=== PATIENT | female | born 1985 | race Caucasian/White ===

== ENCOUNTER 2016-05-19 14:13 | Emergency (ER) | payer OTHER ==
[2016-05-19 15:16] VITALS: BMI 16.0
[2016-05-19] MEDS ORDERED: NS 1,000 ML IV ONE (18:57)
[2016-05-19] MEDS ORDERED: SODIUM CHLORIDE 0.9% 10 ML FLUSH FLUSH PRN (18:57)
[2016-05-19] MEDS ORDERED: MORPHINE 4 MG/ML INJECTION IV ONE (18:57)
[2016-05-19] MEDS ORDERED: ONDANSETRON HCL 4 MG/2 ML VIAL IV ONE (18:57)
--- NOTE | 2016-05-19 19:00 | EDPRACDOC ---
- General Information Chief Complaint: Abdominal Pain Stated Complaint: LOWER RT ABD PAIN Time Seen by Provider: 05/19/16 18:51 Information Source: Patient Mode Of Arrival: Car Home Medications: Home Medications Hydrocodone Bit/Acetaminophen [Lortab 5/325] 1 tab PO Q4-6H PRN #15 tab Ondansetron HCl [Zofran] 4 mg PO Q8H PRN #15 tab 05/19/16 Allergies/Adverse Reactions: Allergies Allergy/AdvReac Type Severity Reaction Status Date / Time No Known Allergies Allergy Verified 05/19/16 15:16 - History of Present Illness Onset: today HPI: Pt c/o increased R adnexa pain x 1 day with vaginal spotting. Pt states has had pain for a while but not a severe as it is today. Pt states has appointment with [facility]ne on Jun 06 for IUD removal. Denies fever, n/v, changes in bowel or bladder, vaginal discharge. Pain Location: Reports: RLQ Pain Context: Reports: Spontaneous Pain Severity: Severe Pain Quality: Reports: Sharp, Stabbing Pain Radiation: Reports: No Radiation Last Menstrual Period: THIS AM : No Control Method: Reports: IUD Modifying Factors: improves with: Nothing Female Associated Signs & Symptoms: Reports: Vaginal Bleeding Oral Intake: Normal Urinary Output: Normal ED Past Medical History - History Reviewed Yes Nurses notes reviewed and agree except as marked - Patient Medical History Surgical History: Reports: Tonsillectomy/Adnoidectomy - Social Medical History Smoking Status: Never smoker ETOH: Social Substance Abuse: None EDM Review of Systems - Review of Systems Constitutional: No Symptoms Reported. negative: Fever, Chills, Weakness, Fatigue, Loss of Appetite Respiratory: No Symptoms Reported. negative: Cough, Brassy Cough, Barky Cough, Shortness of Breath, Wheezing, Hemoptysis Cardiovascular: No Symptoms Reported. negative: Chest Pain, Palpitations, Syncope, Edema, Orthopnea, PND, Skin Mottling, Cyanosis Gastrointestinal: Pain Genitourinary: Bleeding Neurological: No Symptoms Reported. negative: Headache, Dizziness, Seizure, Numbness, Weakness, Speech Difficulty, Gait Difficulty Musculoskeletal: No Symptoms Reported. negative: Neck, Chestwall, Ribs, Back, Shoulder, Arm, Elbow, Forearm, Wrist, Hand, Pelvis, Hip, Femur, Knee, Leg, Ankle , Foot Integumentary: No Symptoms Reported. negative: Itching, Rash, Bruising, Wound Allergic/Immunologic: No Symptoms Reported. negative: Hives, Itching Hematologic: No Symptoms Reported. negative: Lymphadenopathy, Easy Bruising, Easy Bleeding Psychiatric: No Symptoms Reported. negative: Anxiety, Depression, Hallucinations, Insomnia, Suicidal - Physical Exam Constitutional: Alert Oriented to: Time, Person, Place Last recorded Vital Signs: Last Vital Signs Temp 98.6 F 05/19/16 15:15 Pulse 81 05/19/16 18:47 Resp 20 05/19/16 15:15 BP 123/82 05/19/16 18:47 Pulse Ox 100 05/19/16 18:47 Oxygen Pulse Oxygen Saturation 100 O2 Device Oxygen Flow Rate Fraction of Inspired Oxygen ( FIO2) - HEENT Head: Normal ( normocephalic) Eye Exam: Normal (PERRL, EOMI, Sclera white) Neck: Normal (FROM, trachea at midline) - Respiratory/Cardiovascular Respiratory: Normal - CTA (BBS clear to auscultation without adventitious sounds ) Cardiovascular: Normal (RRR without murmur, gallop or rub) - GI Auscultation: Normal (NABS) Palpation: Normal (Soft,No rebound or guarding, non distended) Tenderness: Other (R inguinal pain) - Bladder: Normal External: Normal Vagina: Normal Cervix: Blood Uterus: Normal size Adnexa: Right: Tender - Musculoskeletal Back: Normal (Non-Tender) Extremities: Normal (Normal tone, Pulses 2+ No cyanosis or edema, FROM) - Integumentary Skin: Normal, Warm, Dry Lymphatics: Normal (no adenopathy) - Neurologic Memory Impaired: Normal Motor Function: Normal (Normal tone, Pulses 2+ No cyanosis or edema, FROM) Mood Description: Normal Perception: Normal - Differential Diagnosis Gastroenteritis, UTI, Other (vaginitis, cervicitis, torsion of ovary) - Results 05/19/16 19:05 05/19/16 19:05 WBC 9.9 xk/uL (3.8-10.8) 05/19/16 19:05 RBC 4.44 xM/uL (4.20-5.40) 05/19/16 19:05 Hgb 13.8 g/dL (12.0-16.0) 05/19/16 19:05 Hct 41.2 % (36-47) 05/19/16 19:05 MCV 93 fL (81-99) 05/19/16 19:05 MCH 31.0 pg (27-32) 05/19/16 19:05 MCHC 33.5 g/dl (33-36) 05/19/16 19:05 RDW 13.0 % (11.5-14.5) 05/19/16 19:05 Plt Count 329 xk/uL (130-400) 05/19/16 19:05 MPV 7.6 fL (7.4-10.4) 05/19/16 19:05 Neut % (Auto) 55.8 % (45-76) 05/19/16 19:05 Lymph % (Auto) 35.1 % (17-44) 05/19/16 19:05 [place] % (Auto) 7.6 % (3-10) 05/19/16 19:05 Eos % (Auto) 0.8 % (0-5) 05/19/16 19:05 Baso % (Auto) 0.7 % (0-2) 05/19/16 19:05 Absolute Neuts (auto) 5.45 xk/uL (1.7-8.2) 05/19/16 19:05 Absolute Lymphs (auto) 3.47 xk/uL (0.65-4.75) 05/19/16 19:05 Sodium 141 mEq/L (137-146) 05/19/16 19:05 Potassium 3.4 mEq/L (3.5-5.1) L 05/19/16 19:05 Chloride 102 mEq/L (98-107) 05/19/16 19:05 Carbon Dioxide 30 mMOL/L (22-33) 05/19/16 19:05 Anion Gap 12 mEq/L (8-16) 05/19/16 19:05 BUN 11 MG/DL (7-17) 05/19/16 19:05 Creatinine 0.80 MG/DL (0.52-1.04) 05/19/16 19:05 Estimated GFR (MDRD) > 60 mL/min (>=60) 05/19/16 19:05 Glucose 100 MG/DL (70-99) H 05/19/16 19:05 Calculated Osmolality 270 MOs/Kg (270-290) 05/19/16 19:05 Calcium 9.1 MG/DL (8.4-10.2) 05/19/16 19:05 Total Bilirubin 0.6 MG/DL (0.2-1.3) 05/19/16 19:05 AST 30 IU/L (14-36) 05/19/16 19:05 ALT 24 IU/L (9-52) 05/19/16 19:05 Alkaline Phosphatase 69 IU/L (38-126) 05/19/16 19:05 Total Protein 8.0 G/DL (6.3-8.2) 05/19/16 19:05 Albumin 4.6 G/DL (3.5-5.0) 05/19/16 19:05 Urine Color Svetlana 05/19/16 18:30 Urine Clarity Sl cldy 05/19/16 18:30 Urine pH 6.0 (5.0-8.0) 05/19/16 18:30 Ur Specific [place] 1.025 (1.003-1.035) 05/19/16 18:30 Urine Protein 1+ (NEG/TRACE) H 05/19/16 18:30 Urine Glucose (UA) Neg (NEGATIVE) 05/19/16 18:30 Urine Ketones 1+ (NEGATIVE) H 05/19/16 18:30 Urine Occult Blood 3+ (NEG/TRACE) H 05/19/16 18:30 Urine Nitrite Neg (NEGATIVE) 05/19/16 18:30 Urine Bilirubin Neg (NEGATIVE) 05/19/16 18:30 Urine Urobilinogen <2.0 MG/DL (0-1) 05/19/16 18:30 Ur Leukocyte Esterase Trace (NEGATIVE) H 05/19/16 18:30 Urine RBC 2-5 (0-5) 05/19/16 18:30 Urine WBC 2-5 (0-5) 05/19/16 18:30 Ur Epithelial Cells 4+ 05/19/16 18:30 Urine Bacteria Few (NEG/FEW) 05/19/16 18:30 Urine Mucus Mod (NEG/OCC) H 05/19/16 18:30 Urine Test Neg (NEGATIVE) 05/19/16 18:30 Microbiology 05/19/16 20:19 RIDGE Preparation - Final Vaginal 05/19/16 20:19 Trichomonas Wet [place] - Final Vaginal Lab Results 0105/19/16 05/19/16 19:05 19:05 18:30 WBC 9.9 RBC 4.44 Hgb 13.8 Hct 41.2 MCV 93 MCH 31.0 MCHC 33.5 RDW 13.0 Plt Count 329 MPV 7.6 Neut % (Auto) 55.8 Lymph % (Auto) 35.1 [place] % (Auto) 7.6 Eos % (Auto) 0.8 Baso % (Auto) 0.7 Absolute Neuts (auto) 5.45 Absolute Lymphs (auto) 3.47 Sodium 141 Potassium 3.4 L Chloride 102 Carbon Dioxide 30 Anion Gap 12 BUN 11 Creatinine 0.80 Estimated GFR (MDRD) > 60 Glucose 100 H Calculated Osmolality 270 Calcium 9.1 Total Bilirubin 0.6 AST 30 ALT 24 Alkaline Phosphatase 69 Total Protein 8.0 Albumin 4.6 Urine Color Svetlana Urine Clarity Sl cldy Urine pH 6.0 Ur Specific [place] 1.025 Urine Protein 1+ H Urine Glucose (UA) Neg Urine Ketones 1+ H Urine Occult Blood 3+ H Urine Nitrite Neg Urine Bilirubin Neg Urine Urobilinogen <2.0 Ur Leukocyte Esterase Trace H Urine RBC 2-5 Urine WBC 2-5 Ur Epithelial Cells 4+ Urine Bacteria Few Urine Mucus Mod H Urine Test 05/19/16 18:30 WBC RBC Hgb Hct MCV MCH MCHC RDW Plt Count MPV Neut % (Auto) Lymph % (Auto) [place] % (Auto) Eos % (Auto) Baso % (Auto) Absolute Neuts (auto) Absolute Lymphs (auto) Sodium Potassium Chloride Carbon Dioxide Anion Gap BUN Creatinine Estimated GFR (MDRD) Glucose Calculated Osmolality Calcium Total Bilirubin AST ALT Alkaline Phosphatase Total Protein Albumin Urine Color Urine Clarity Urine pH Ur Specific [place] Urine Protein Urine Glucose (UA) Urine Ketones Urine Occult Blood Urine Nitrite Urine Bilirubin Urine Urobilinogen Ur Leukocyte Esterase Urine RBC Urine WBC Ur Epithelial Cells Urine Bacteria Urine Mucus Urine Test Neg - Diagnostic Imaging Abdomen Image interpreted by: Radiologist 05/19/16 20:09 IMPRESSION: Normal pelvic ultrasound with Doppler. Intrauterine device in the uterus. Decision Time to Discharge: 20:31 - Departure Disposition: Home Condition: Good Final Diagnosis: RLQ abdominal pain Instructions: Acute Abdominal Pain (ED), Non-pharmacological Pain Management Therapies for Adults (GEN), Abdominal Pain (ED) Education/Counseling Given To: Patient Education/Counseling Given Regarding: Diagnosis, Treatment, Follow Up Referrals: None,No Provider [Primary Care Provider] - One Week Mateo Platt MD [Staff Physician] - One Week Prescriptions: Hydrocodone Bit/Acetaminophen [Lortab 5/325] 1 tab PO Q4-6H PRN #15 tab PRN Reason: Pain Ondansetron HCl [Zofran] 4 mg PO Q8H PRN #15 tab PRN Reason: Nausea/Vomiting Additional Instructions: Follow up with [facility] as planned.
[2016-05-19 19:24] LABS: AUTOMATED BASOPHIL 0.7 % (0-2); AUTOMATED EOSINOPHIL 0.8 % (0-5); AUTOMATED LYMPH 35.1 % (17-44); AUTOMATED MONOCYTE 7.6 % (3-10); AUTOMATED NEUTROPHIL 55.8 % (45-76); MPV 7.6 fL (7.4-10.4)
[2016-05-19 19:26] LABS: LEUKOCYTES/URINE TRACE (NEGATIVE); NITRITE/URINE NEG (NEGATIVE); URINE OCCULT BLOOD 3+ (NEG/TRACE)
[2016-05-19 19:31] LABS: BLOOD UREA NITROGEN 11 MG/DL (7-17); CALCIUM 9.1 MG/DL (8.4-10.2); CALCULATED OSMOLALITY 270 MOs/Kg (270-290); CHLORIDE 102 mEq/L (98-107); GLUCOSE 100 MG/DL (70-99); SODIUM LEVEL 141 mEq/L (137-146)
--- NOTE | 2016-05-19 20:03 | DIRPT ---
CLINICAL DATA: Vaginal bleeding and right lower quadrant pain for 3 weeks. EXAM: TRANSABDOMINAL AND TRANSVAGINAL ULTRASOUND OF PELVIS DOPPLER ULTRASOUND OF OVARIES TECHNIQUE: Both transabdominal and transvaginal ultrasound examinations of the pelvis were performed. Transabdominal technique was performed for global imaging of the pelvis including uterus, ovaries, adnexal regions, and pelvic cul-de-sac. It was necessary to proceed with endovaginal exam following the transabdominal exam to visualize the uterus, endometrium, ovaries and adnexa. Color and duplex Doppler ultrasound was utilized to evaluate blood flow to the ovaries. COMPARISON: None. FINDINGS: Uterus Measurements: 6.5 x 3.9 x 5.1 cm. No fibroids or other mass visualized. Endometrium Thickness: 5.6 mm. Linear echogenic shadowing IUD in place. No focal abnormality visualized. Right ovary Measurements: 2.8 x 1.8 x 2.4 cm. Normal appearance/no adnexal mass. Blood flow is noted. Left ovary Measurements: 3.0 x 1.8 x 2.8 cm. Normal appearance/no adnexal mass. Blood flow is noted. Pulsed Doppler evaluation of both ovaries demonstrates normal low-resistance arterial and venous waveforms. Other findings No abnormal free fluid. IMPRESSION: Normal pelvic ultrasound with Doppler. Intrauterine device in the uterus. Electronically Signed By: Nuria Sloan M.D. On: 05/19/2016 20:00
[2016-05-19 21:18] VITALS: BP 124/74; PULSE 98; TEMP 97.4
[2016-05-22 07:40] LABS: CHLAMY BY NUCLEIC ACID AMP Negative (Negative)
[2016-05-22 08:43] LABS: GC BY NUCLEIC ACID AMP Negative (Negative)
== END 2016-05-19 20:56 | disposition home or self-care (01) ==
LOC: ED 14:13
DX: R10.31 Right lower quadrant pain (principal)
CPT/HCPCS: 76830; 76856; 80053; 81001; 81025; 85025; 87210; 87220; 87491; 87591; 93975; 99284; J2270; J2405